=== PATIENT | male | born 1985 | race Caucasian/White ===

== ENCOUNTER → 2021-04-03 16:59 | Outpatient (CLI) | payer BC, SELFPAY ==
--- NOTE | ~2021-04-03 | XR_ITS ---
EXAMINATION: XR thoracic spine 2V DATE: 04/03/2021 18:52 INDICATION: Thoracic back pain. TECHNIQUE: 3 views of thoracic spine were obtained. COMPARISON: None. FINDINGS: There is 5 degrees dextrocurvature of thoracic spine. Vertebral body heights and interverte bral disc heights are normal. There are endplate osteophytes at multiple levels. IMPRESSION: 1. Mild thoracic spondylosis. Reviewed, dictated and finalized at location A.
--- NOTE | ~2021-04-03 | XR_ITS ---
EXAMINATION: XR lumbar spine 2-3V DATE: 04/03/2021 18:52 INDICATION: Low back pain. TECHNIQUE: 3 views of lumbar spine were obtained. COMPARISON: None. FINDINGS: Bone alignment is normal. Vertebral body heights and intervertebral disc heights are normal . There is multilevel mild facet joint osteoarthritis. IMPRESSION: 1. Mild lumbar spondylosis. Reviewed, dictated and finalized at location A. IMPRESSION: 1. Mild lumbar spondylosis.
== END ==
PROVIDERS: PCP Family Medicine; Visit Provider Chiropractor
DX: M47.894 Other spondylosis, thoracic region (principal); M47.896 Other spondylosis, lumbar region
CPT/HCPCS: 72070; 72100

== ENCOUNTER 2022-07-19 19:29 | Emergency (ER) | payer BC, SELFPAY ==
[2022-07-19 19:37] VITALS: BP 139/85; PULSE 70; RESP 18; TEMP 36.8; O2SAT 100
--- NOTE | 2022-07-19 19:49 | ED.SKABFB ---
HPI - Skin/Abscess/Foreign Bdy General Chief complaint: Skin/Abscess/Foreign Body Stated complaint: Bump on back of Neck Time Seen by Provider: 07/19/22 19:40 Source: patient Mode of arrival: ambulatory Limitations: no limitations History of Present Illness HPI narrative: Mr. Bacon is a 37-year-old male patient presenting to the clinic today with a sore on his the back of his neck. He first noticed this on either or Tuesday. States it came up as a sore and thought he may have been bitten by an insect. He has been poking at it and trying to get out some pus and blood. He reports that its more painful today with a little bit more redness. Related Data Allergies Allergy/AdvReac Type Severity Reaction Status Date / Time No Known Allergies Allergy Verified 07/19/22 19:39 Review of Systems Review of Systems: Pertinent positives per HPI. Patient denies any fever, chills, rash, headache, visual changes, dizziness, cough, runny nose, sore throat, shortness of breath, chest pain, palpitations, nausea, vomiting, diarrhea, constipation, abdominal pain, or any urinary issues. [facility] Family History Family History Father Family history of hypercholesterolemia Mother Hypertension Social History Social History Alcohol intake: current Comments At the time of my signature, I reviewed and agree with the nursing past medical, surgical, social, and family history. There is no relevant family history pertinent to the patient complaint. Exam Narrative: General: Well-developed, well nourished, in no apparent distress Head: Normocephalic, atraumatic. Cardio: Regular rate and rhythm, s1 and s2 normal, no murmur appreciated. Resp: Clear to auscultation bilaterally, no rhonchi, rales, wheezing or rubs. Integumentary: [place], warm, and dry, open raised lesion with induration measuring 1 cm x 1 cm with bloody white discharge when expressed. Mildly tender to palpation culture was obtained Course Course Emergency Course: Portions of this record may have been created with voice recognition software. Level of Care: Express Care Visit Vital Signs Vital signs: Vital Signs Temperature 36.8 C 07/19/22 19:37 Pulse Rate 70 07/19/22 19:37 Respiratory Rate 18 07/19/22 19:37 Blood Pressure 139/85 07/19/22 19:37 Pulse Oximetry 100 07/19/22 19:37 Oxygen Delivery Room Air 07/19/22 19:37 Temperature 36.8 C 07/19/22 19:37 Pulse Rate 70 07/19/22 19:37 Respiratory Rate 18 07/19/22 19:37 Blood Pressure 139/85 07/19/22 19:37 Pulse Oximetry 100 07/19/22 19:37 Oxygen Delivery Room Air 07/19/22 19:37 Vital signs reviewed MDM - Skin/Abscess/Foreign Bdy MDM Narrative Medical decision making narrative: At the time of visit patient is resting comfortably on exam table. I suspect that the patient has either an abscess or small sebaceous infected cyst. Prescription for doxycycline was sent to the pharmacy and a culture was obtained of the wound drainage. Supportive measures were discussed with the patient he voiced understanding of discharge instructions and agrees to the treatment plan. Differential Diagnosis Differential diagnosis: Likely abscess of skin or subcutaneous tissue, cellulitis, insect bites and other (Infected sebaceous cyst) Discharge Plan Discharge Clinical Impression: Bacterial skin infection Patient Disposition: Home, Self-Care Condition: Stable Instructions: Antibiotic Form, Wound Infection (ED) Additional Instructions: Culture was obtained of wound drainage Take Doxycycline as prescribed Keep area covered if draining May apply mupirocin cream to the affected area twice daily as directed Follow-up with your PCP and 1 week if symptoms persist or sooner if they worsen Prescriptions: New doxycycline hyclate 100 mg capsule 100 mg PO BID
== END 2022-07-19 19:56 | disposition home or self-care (01) ==
PROVIDERS: Emergency Provider Nurse Practitioner Family; PCP Family Medicine
DX: L08.9 Local infection of the skin and subcutaneous tissue, unspecified (principal); B96.89 Other specified bacterial agents as the cause of diseases classified elsewhere; E78.00 Pure hypercholesterolemia, unspecified
CPT/HCPCS: 87070; 87075; 87147; 87181; 87186; 87205; 99213; G0463

== ENCOUNTER 2022-08-07 18:37 | Emergency (ER) | payer BC, SELFPAY ==
[2022-08-07 18:45] VITALS: BP 130/84; PULSE 66; RESP 16; TEMP 36.7; O2SAT 100
--- NOTE | 2022-08-07 18:59 | ED.SKABFB ---
HPI - Skin/Abscess/Foreign Bdy General Chief complaint: Skin/Abscess/Foreign Body Stated complaint: Rash Lt Arm Time Seen by Provider: 08/07/22 18:50 History of Present Illness HPI narrative: Ozzie Shi is a 37 yo male with a PMH of high cholesterol who returns with a rash on his left lateral lower arm that measures 6 By 4 and 5 and half by 3-he was treated for for folliculitis on 822 and the culture was sent which turned out to be staph and so the antibiotic was changed to doxycycline to Keflex. 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 Today presents with rash on his arm but also on examination of his torso has a few spots on his chest and on his left upper back that are similar to the affected follicle of 07/19. Related Data Allergies Allergy/AdvReac Type Severity Reaction Status Date / Time No Known Allergies Allergy Verified 08/07/22 18:43 Review of Systems Review of Systems: CONSTITUTIONAL: Denies fever, chills, sweats. EYES: Denies visual changes, redness, discharge. ENT: Denies rhinorrhea, congestion, sore throat, otalgia. CARDIOVASCULAR: Denies chest pain, palpitations, edema. RESPIRATORY: Denies dyspnea, wheezing, cough GASTROINTESTINAL: Denies abdominal pain, nausea, vomiting, diarrhea. GENITOURINARY: Denies dysuria, hematuria, abnormal discharge SKIN: Denies rash or nonpruritic rash of left lower arm NEUROLOGIC: Denies numbness, or focal weakness. PSYCHIATRIC: Denies anxiety or depression. [facility] Past Medical History Medical History (Updated 08/07/22 @ 19:18 by Radha Dinero CNP) Asthma Chronic bilateral low back pain without sciatica Hypertriglyceridemia Family History Family History Father Family history of hypercholesterolemia Mother Hypertension Social History Social History (Updated 08/07/22 @ 19:07 by Radha Dinero CNP) Smoking status: Never smoker Alcohol intake: current Comments At time of signature, I agree with nursing past medical, surgical, social and family history. There is no relevant family history pertinent to the presenting complaint. Exam Narrative: GENERAL: This is a well-nourished, well-developed patient, in mild distress. HEAD: normocephalic, atraumatic. EYES: . Sclera clear/white. Vision is grossly intact. EARS: External ears normal, Hearing grossly intact. NOSE: External nose normal without nasal discharge, nares without redness, no rhinorrhea. THROAT: Mucous membranes moist, NECK: Neck supple, [id number] follicle posterior neck CARDIOVASCULAR: Regular rate and rhythm without murmurs, gallops, or rubs. RESPIRATORY: Clear to auscultation. Breath sounds equal bilaterally. No wheezes, rales, or rhonchi. GASTROINTESTINAL: Not done SKIN: warm, intact with 2 coalesced areas of dermatitis has left lower lateral forearm that is nonparetic none weeping and few small non measurable areas that look like partially infected follicles on his left upper back and center of his chest NEURO: awake, alert, and oriented to person, place and time. There were no obvious focal neurologic abnormalities. Steady gait EXTREMITIES: Normal range of motion. BACK: Nontender without deformity Course Course Emergency Course: Patient here with rash in his left lower extremity that is nonpruritic and is red coalesced to 2 large areas, he did had breaks in his course of Keflex for treatment of staph His new rash and points of areas on his on his torso that are red are assumed to be staph and will be treated as such he will get Hibiclens from the pharmacy and follow directions are given him that include washing for 5 days in a row and using triple antibiotic ointment in his nostrils and bellybutton for 5 days in a row and this is to be repeated each month as well as throwing away all sponges aloofness in the shower and not sharing bars of soap S
== END 2022-08-07 19:24 | disposition home or self-care (01) ==
PROVIDERS: Emergency Provider Nurse Practitioner; PCP Family Medicine
DX: L08.89 Other specified local infections of the skin and subcutaneous tissue (principal); B95.8 Unspecified staphylococcus as the cause of diseases classified elsewhere; J45.909 Unspecified asthma, uncomplicated; E78.1 Pure hyperglyceridemia
CPT/HCPCS: 99213; G0463